=== PATIENT | male | born 1955 | race Caucasian/White ===

== ENCOUNTER 2021-03-19 13:44 | Emergency (ER) | payer OTHER, SELFPAY ==
[2021-03-19 13:58] VITALS: BP 148/91; PULSE 89; RESP 16; TEMP 37.1; O2SAT 95; BMI 36.3
--- NOTE | 2021-03-19 19:30 | ED_ITS ---
HPI - Skin/Abscess/Foreign Bdy General: Chief complaint: Skin/Abscess/Foreign Body Stated complaint: RASH Time Seen by Provider: 03/19/21 19:20 History of Present Illness: HPI narrative: Patient is a 65-year-old male comes to the ED with a rash on face. Patient says the rash started yesterday and continues to worsen. Patient was seen by primary care doctor via video conference appointment earlier today. He was diagnosed with herpes zoster his rash and set up prescription for valacyclovir. Patient has taken 1 dose today. Told patient to come to the ED to evaluate for ocular involvement of herpes zoster rash. Patient states he has not had his shingles vaccination and has not had shingles in the past. Associated symptoms: Deny chills, fever(s), nausea or vomiting Review of Systems Const: Denies: fever(s), chills or fatigue Eyes: Denies: change in vision or eye discomfort ENMT: Denies: throat pain, odynophagia, nasal discharge or nasal congestion Card: Denies: chest pain, palpitations, edema, swelling of feet/ankles, dyspnea on exertion or orthopnea Resp: Denies: dyspnea, productive cough or non-productive cough GI: Denies: abdominal pain, nausea, vomiting, diarrhea, constipation or hematochezia : Denies: flank pain, difficulty urinating, dysuria or hematuria Musc: Denies: neck pain, back pain or extremity swelling Skin/Breast: Reports: rash (Painful rash with vesicles on left forehead and left periorbital); Denies: new lesions Neuro: Denies: headache(s), numbness in extremities or weakness in extremities Physical Exam Const: COMMON NORMALS: patient oriented x3 HENMT: COMMON NORMALS: normocephalic HEAD & SCALP: normocephalic MOUTH: Normal oral and palatal mucosa present THROAT: posterior oropharynx normal and uvula midline OTHER: Patient has classic herpes zoster's rash on left forehead and left periorbital region. He is small clear fluid vesicles noted and rashes tender to palpation. Eye: COMMON NORMALS: Equal, round and reactive pupils present and EOMs intact bilaterally CONJUNCTIVA: Yes conjunctival abnormal positive left conjunctival injection localized (lateral aspect of eye) PUPIL: Yes Equal, round and reactive pupils present OTHER: Lamp exam with fluorescein performed.-Some dendritic lesions seen upon exam, suggestive of herpes zoster ocular involvement. Neck/C-Spine: COMMON NORMALS: supple GENERAL: Yes normal visual inspection Resp: COMMON NORMALS: normal respiratory effort, No retractions, No use of accessory muscles and clear to auscultation bilaterally AUSCULTATION: clear to auscultation bilaterally Cardio: COMMON NORMALS: regular rate, regular rhythm, S1 normal heart sound present, S2 normal heart sound present, No gallops present (Cardio), No clicks present (Cardio), No murmurs present (Cardio) and Peripheral pulses 2+ throughout RATE: regular rate RHYTHM: regular rhythm HEART SOUNDS: S1 normal heart sound present and S2 normal heart sound present PERIPHERAL PULS ES: Peripheral pulses 2+ throughout GI: COMMON NORMALS: Normal to inspection, nondistended, normoactive bowel sounds present, Soft to palpation, non-tender and no masses PALPATION: Yes Soft to palpation : COMMON NORMALS: Yes no CVA tenderness BLADDER/KIDNEY EXAM: Yes no CVA tenderness Back/Pelvis: COMMON NORMALS: no CVA tenderness Extremity: COMMON NORMALS: normal to inspection Neuro: COMMON NORMALS: patient oriented x3 and moves all extremities Skin: NARRATIVE SKIN EXAM: Patient has herpes zoster's dermatitis on left forehead and left periorbital region. GENERAL SKIN EXAM: dry skin Course Vital Signs: Vital signs: Vital Signs Temperature 98.8 F 03/19/21 13:58 Pulse Rate 86 03/19/21 20:43 Respiratory Rate 16 03/19/21 20:43 Blood Pressure 132/88 03/19/21 20:43 Pulse Oximetry 97 03/19/21 20:43 MDM - Skin/Abscess/Foreign Bdy MDM Narrative: Medical decision making narrative: Patient is a 65-year-old male who comes to the ED with herpes zoster his rash on left forehead and around left periorbital region. Patient had vid/telehealth appointment with Dr. peter today and he was diagnosed with herpes zoster and given prescription for valacyclovir. He was told to come to the ED for evaluation of left eye. Upon exam patient does have herpes zoster rash on left forehead and around the left periorbital region. Lamp exam with fluorescein performed on left eye and some dendritic lesions were noted upon exam. This suggests that patient has herpes zoster with ocular involvement as well. Patient was discharged home with Maxitrol eyedrop prescription and a prescription for tramadol for pain. He was given the information to office of the business banking manager Dr. Gonzalez. He was told to contact them in the morning and get an appointment to be seen and evaluated by him tomorrow. Return to ED precautions given. Patient understood agree with plan. Discharge Plan Discharge Patient Disposition: Home Clinical Impression: Herpes zoster dermatitis, Herpes zoster, ocular Condition: Stable Prescriptions: New Maxitrol 3.5mg/mL-10,000 unit/mL-0.1 % drops,suspension 1 drp ophthalmic (eye) Q6H Qty: 5 RF: 0 Discharge Orders: Discharge ED (Routine); Ordered 03/19/21 Ordered By: Emre Patel Discharge Diet: Regular Discharge Activity: Resume usual activity Patient Instructions: Herpes Zoster (ED) Activity Restrictions/Additional Instructions: Follow-up with medical provider as directed. Call Dr. Gonzalez [facility] clinic tomorrow morning phone number is [phone]. Address is [facility] [address] Shah. take medications as prescribed. Continue taking her previously prescribed valacyclovir. Return to the ER or your medical provider if condition worsens. Please read and understand discharge instructions. If any questions, please ask. Coding Level of Care Code ED Promotions Specialist for [place] Fwd Exam Comprehensive
[2021-03-19] MEDS: eye irrigation 30 mL Btl EYE-LEFT (19:43)
[2021-03-19] MEDS: fluorescein 1 mg Strip EYE-LEFT (19:43)
[2021-03-19 20:43] VITALS: BP 132/88; PULSE 86; RESP 16; O2SAT 97
== END 2021-03-19 20:45 | disposition home or self-care (01) ==
PROVIDERS: Emergency Provider Physician Assistant
DX: B02.8 Zoster with other complications (principal)
CPT/HCPCS: 99282